=== PATIENT | female | born 1995 | race Two or more races ===

== ENCOUNTER 2024-04-10 05:06 | Emergency (ER) | payer OTHER ==
[~2024-04-10] VITALS: Ht 152.4 cm; Wt 67.1 kg
[2024-04-10 05:16] VITALS: BP 141/88; PULSE 82; RESP 14; TEMP 98; O2SAT 99
[2024-04-10] MEDS ORDERED: NAPR-746 PO (07:11)
[2024-04-10] MEDS ORDERED: CEPH500C PO (07:11)
== END 2024-04-10 07:25 | disposition home or self-care (01) ==
LOC: ER 05:06
DX: S90.31XA Contusion of right foot, initial encounter (principal); B35.3 Tinea pedis; L08.89 Other specified local infections of the skin and subcutaneous tissue; Z79.899 Other long term (current) drug therapy; W20.8XXA Other cause of strike by thrown, projected or falling object, initial encounter; Y93.89 Activity, other specified; Y92.89 Other specified places as the place of occurrence of the external cause; Y99.8 Other external cause status
CPT/HCPCS: 73630